=== PATIENT | male | born 1980 | race Caucasian/White ===

== ENCOUNTER 2017-10-18 18:21 | Emergency (ER) | payer MEDICAID ==
[2017-10-18] MEDS ORDERED: NS 1,000 ML IV ONE ×2 (19:43→20:03)
--- NOTE | 2017-10-18 19:56 | EDPHY ---
H & P Time Seen by Provider: 10/18/17 19:56 HPI/ROS: CHIEF COMPLAINT: Nausea vomiting and diarrhea HISTORY OF PRESENT ILLNESS: Patient had chicken sandwich [employer] on Tuesday and then next started having nausea vomiting and diarrhea. Associated with mild headache, some abdominal cramping. No fevers or chills and no recent travel. No blood or coffee grounds in the emesis, no melena or red blood per rectum in the stool. Symptoms moderate. REVIEW OF SYSTEMS: Eye: no change in vision, no fever but"my eyes are burning" ENT: no sore throat Cardiac: no chest pain or syncope Pulmonary: no cough or SOB Abdomen: HPI Musculoskeletal: no back pain Skin: no rash Neuro: no headache Constitutional: no fever, but does have chills : no urinary symptoms A comprehensive 10 point review of systems is otherwise negative aside from elements mentioned in the history of present illness. PAST MEDICAL HISTORY: Negative Social history: And [facility] house, no IV drugs General Appearance: Alert and conversant, cooperative. Eyes: No scleral icterus. Normal external eye exam. ENT, Mouth: Normal mucous membranes. Respiratory: Normal respiratory effort, breath sounds equal, lungs are clear to auscultation. Cardiovascular: Regular rate and rhythm. Gastrointestinal: Abdomen is soft and non tender. Normal male , no McBurney' s point tenderness, negative Mandujano's. Neurological: Alert, face symmetric, normal motor and sensory in extremities. Skin: Warm and dry, no rashes. Musculoskeletal: No peripheral edema. Psychiatric: Not agitated. Emergency Department course/MDM: Saline 2 L IV, Zofran 4 mg IV, labs sent. More likely to be food related or viral gastroenteritis. 2150: Drinking fluids, no further vomiting, stable for discharge. Smoking Status: Current every day smoker Constitutional: Initial Vital Signs Temperature (C) 36.9 C 10/18/17 18:27 Heart Rate 97 10/18/17 18:27 Respiratory Rate 16 10/18/17 18:27 Blood Pressure 135/69 H 10/18/17 18:27 O2 Sat (%) 95 10/18/17 18:27 O2 Delivery Mode Room Air Allergies/Adverse Reactions: No Known Allergies Allergy (Unverified 10/18/17 18:27) Home Medications: Medication Instructions Recorded Ondansetron Odt [Zofran Odt] 4 mg PO Q4PRN #6 tab 07/10/18 Medical Decision Making Differential Diagnosis: Differential considered including but not limited to gastroenteritis, food poisoning, appendicitis, pancreatitis - Data Points Laboratory Results: Laboratory Results 10/18/17 19:39 10/18/17 19:39 10/18/17 10/18/17 19:39 19:39 WBC 7.05 10^3/uL 10^3/uL (3.80-9.50) RBC 5.00 10^6/uL 10^6/uL (4.40-6.38) Hgb 15.3 g/dL g/dL (13.7-17.5) Hct 44.9 % % (40.0-51.0) MCV 89.8 fL fL (81.5-99.8) MCH 30.6 pg pg (27.9-34.1) MCHC 34.1 g/dL g/dL (32.4-36.7) RDW 14.0 % % (11.5-15.2) Plt Count 161 10^3/uL 10^3/uL (150-400) MPV 8.8 fL fL (8.7-11.7) Neut % (Auto) Not Reported Lymph % (Auto) Not Reported Wilkinson % (Auto) Not Reported Eos % (Auto) Not Reported Baso % (Auto) Not Reported Nucleat RBC Rel Count Not Reported Absolute Neuts (auto) Not Reported Absolute Lymphs (auto) Not Reported Absolute Monos (auto) Not Reported Absolute Eos (auto) Not Reported Absolute Basos (auto) Not Reported Absolute Nucleated RBC Not Reported Immature Gran % Not Reported Seg Neutrophils % 38 % % Band Neutrophils % 7 % % Lymphocytes % 40 % % Monocytes % 15 % % Immature Gran # Not Reported RBC/WBC/PLT Morphology NORMAL (NORMAL) Atypical Lymphocytes 1+ H Smudge Cells 1+ H Platelet Estimate ADEQUATE (ADEQ) Sodium 132 mEq/L L mEq/L (135-145) Potassium 3.5 mEq/L mEq/L (3.3-5.0) Chloride 103 mEq/L mEq/L (97-110) Carbon Dioxide 26 mEq/l mEq/l (22-31) Anion Gap 3 mEq/L L mEq/L (8-16) BUN 18 mg/dL mg/dL (7-23) Creatinine 0.8 mg/dL mg/dL (0.7-1.3) Estimated GFR > 60 Glucose 101 mg/dL H mg/dL (70-100) Calcium 8.6 mg/dL mg/dL (8.5-10.4) Lipase 82 IU/L IU/L (23-300) Medications Given: Discontinued Medications Sodium Chloride (Ns) 1,000 mls @ 0 mls/hr IV ONCE ONE; Wide Open PRN Reason: Protocol Stop: 10/18/17 19:44 Last Admin: 10/18/17 19:49 Dose: 1,000 mls Sodium Chloride (Ns) 1,000 mls @ 0 mls/hr IV EDNOW ONE; Wide Open PRN Reason: Protocol Stop: 10/18/17 20:04 Last Admin: 10/18/17 20:23 Dose: 1,000 mls Ondansetron HCl (Zofran) 4 mg IVP EDNOW ONE Stop: 10/18/17 20:04 Last Admin: 10/18/17 20:22 Dose: 4 mg Departure - Departure Disposition: Home, Routine, Self-Care Clinical Impression: Dehydration Nausea & vomiting Qualifiers: Vomiting type: unspecified Vomiting Intractability: non-intractable Qualified Code(s): R11.2 - Nausea with vomiting, unspecified Condition: Good Instructions: Acute Nausea and Vomiting (ED) Referrals: MICHELLE,YAJAIRA [Other] - As per Instructions Stand Alone Forms: Statement of Treatment Prescriptions: Ondansetron Odt [Zofran Odt] 4 mg PO Q4PRN #6 tab
[2017-10-18 19:59] LABS: PLATELET COUNT 161 10^3/uL (150-400)
[2017-10-18] MEDS ORDERED: ONDANSETRON 4 MG/2 ML VIAL IVP ONE (20:03)
[2017-10-18 21:52] VITALS: BP 139/72
== END 2017-10-18 21:52 | disposition home or self-care (01) ==
DX: R11.2 Nausea with vomiting, unspecified (principal); F17.200 Nicotine dependence, unspecified, uncomplicated; E86.9 Volume depletion, unspecified
CPT/HCPCS: 96374; J2405